=== PATIENT | female | born 1970 | race American Indian/Alaskan Native ===

== ENCOUNTER 2020-09-04 07:57 | Day surgery (SDC) | payer OTHER ==
[~2020-09-04] VITALS: Ht 172.7 cm; Wt 101.0 kg
[~2020-09-04 07:57] MED LIST: BIRTH CONTROL; DICLOFENAC SODI75 MG PO; HYDROCODON-ACE1 EA11 PO; NORCO 5-325 TA1 EACH PO; SUMATRIPTAN SU100 MG PO
[2020-09-04] MEDS ORDERED: PRILOSEC OTC20 MG PO (08:23)
--- NOTE | 2020-09-04 09:21 | NUR ---
09/04/20 0921 Madison Alan 0913 PT TO PACU SLEEPY BUT AROUSABLE DENIES PAIN OR NAUSEA.
--- NOTE | 2020-09-04 11:42 | OR ---
[facility] [address] [place], [place] [address] Signed DATE OF OPERATION: 09/04/2020 SURGEON: Kamlesh Acosta MD PREOPERATIVE DIAGNOSES: 1. Epigastric abdominal pain. 2. Substernal chest pain. 3. History of H. pylori at age 25, status post treatment. 4. Screening. POSTOPERATIVE DIAGNOSES: 1. Mild diffuse gastritis. 2. Ihaxvrt-dp-pthxxxuy sigmoid diverticulosis. 3. 5 mm polyp at 6 cm. PROCEDURES: 1. EGD with CLOtest and biopsies of the antrum. 2. Colonoscopy with hot biopsy. ESTIMATED BLOOD LOSS: None. INDICATIONS: Blanca is a 50-year-old female, asked to see me for upper and lower endoscopy. She gives no family history of colon cancer or polyps. She spoke about upper endoscopy at age 25. She remembers being treated for Helicobacter pylori. Overall, she thought she felt better at that time. More recently, her father is getting older and his dementia is getting worse. 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 Consequently, she has been having epigastric and substernal chest pain. As a result, she was asked to see me for both upper and lower endoscopies. To her knowledge, she really has no lower GI complaints. In the office, I gave her pamphlets on both upper and lower endoscopy. We reviewed the nature of the two tests along with the risks including, but not limited to gas bloating, crampy abdominal pain, bleeding, perforation requiring surgery, and missed diagnosis. We also discussed the need for the IV conscious sedation. She had expressed understanding and wished to proceed. PROCEDURE NOTE: Blanca was taken into our endoscopy suite and placed in the supine semi-recumbent position. The posterior oropharynx was anesthetized with lidocaine spray. A bite block was utilized for the case. She was given a total of 8 mg of Versed and 175 mcg of Electronically Signed By: KAMLESH ACOSTA MD 09/04/20 1142 PATIENT NAME: BLANCA RIVER OPERATIVE REPORT DATE OF : 70 REPORT #: [id number] PHYSICIAN: KAMLESH ACOSTA MD PCP: CORAL PATEL REPORT IS CONFIDENTIAL AND NOT TO BE RELEASED WITHOUT AUTHORIZATION [facility] [address] [place], [place] [address] Signed fentanyl to cover both cases. The adult gastroscope was introduced and advanced under direct visualization of camera into the third portion of the duodenum without difficulty. The duodenum and pyloric channel were unremarkable. Her stomach showed mild diffuse erythematous changes. We took a biopsy from the antrum for CLOtest as well as pathologic review. Upon retroflexion of scope, she may have just a very tiny hiatal hernia. The scope was withdrawn up through the area of the GE junction, which was compliant without stricture. She has minimal disruption to the Z-line. There was no Covington's mucosa. No distal esophagitis. The middle and upper esophagus were unremarkable. The vocal cords were unremarkable. After this, the gas had been suctioned out and the gastroscope removed. Blanca tolerated her upper endoscopy quite well. Blanca was then rotated into the left lateral decubitus position. She was maintained on IV sedation with the Versed and fentanyl. A digital rectal exam was performed and this was unremarkable. The adult colonoscope was introduced and advanced all around into the cecum under direct visualization of camera without difficulty. Overall, her prep was quite good except right at the base of the cecum. There was particulate stool matter I could not quite suction through the scope. We pushed the particulate stool matter around, we did not find anything unusual underneath the area. The scope was then slowly withdrawn. We could see her ileocecal valve quite nicely. We found sigmoid diverticula. They were minimal to moderate in number, and minimal to moderate in size. The rectum showed just a small polyp at about 6 cm. It was easily removed with the help of hot biopsy forceps. Upon retroflexion of scope, there was no additional pathology noted above the anal canal. After this, the gas was suctioned out and colonoscope removed. Blanca tolerated the lower endoscopy quite well. RECOMMENDATIONS: I will see Blanca back in my office in 7 to 14 days to review her results. Kamlesh Acosta MD ALB/MODL /[id number] cc: Kamlesh Acosta MD Electronically Signed By: KAMLESH ACOSTA MD 09/04/20 1142 PATIENT NAME: BLANCA R[place] OPERATIVE REPORT DATE OF : 70 REPORT #: [id number] PHYSICIAN: KMALESH ACOSTA MD PCP: CORAL PATEL REPORT IS CONFIDENTIAL AND NOT TO BE RELEASED WITHOUT AUTHORIZATION [address] [address] Signed Coral Patel Copies: KAMLESH ACOSTA MD, ELIZABETH ~ Electronically Signed By: KAMLESH ACOSTA MD 09/04/20 1142 PATIENT NAME: BLANCA R[place] OPERATIVE REPORT DATE OF : 70 REPORT #: [id number] PHYSICIAN: KAMLESH ACOSTA MD PCP: CORAL PATEL REPORT IS CONFIDENTIAL AND NOT TO BE RELEASED WITHOUT AUTHORIZATION
--- NOTE | 2020-09-05 14:45 | PATH ---
[facility] [address] [place], [place] [address] Signed SPECIMEN(S): A ANTRUM/PYLORUS BIOPSY SPECIMEN(S): B RECTAL POLYP AT 6 CM SPECIMEN SOURCE: A. ANTRUM/PYLORUS BIOPSY B. RECTAL POLYP AT 6 CM CLINICAL HISTORY: Esophagogastroduodenoscopy, colonoscopy. Epigastric pain, colon screening. Post: Gastritis, rectal polyp. MICROSCOPIC DESCRIPTION: Histologic sections of all submitted blocks are examined by light microscopy. These findings, together with the gross examination, support the pathologic diagnosis. FINAL PATHOLOGIC DIAGNOSIS: A. Stomach, antrum, biopsy: - Antral mucosa with chronic, active gastritis. - Positive for Helicobacter organisms on HE stain. - Negative for dysplasia or malignancy. B. Rectum, polyp at 6 cm, polypectomy: - Fragments of severely cauterized colorectal mucosa with no identifiable histopathologic abnormality. - See comment. COMMENT: Regarding specimen B: The degree of cautery artifact severely limits complete histologic interpretation. There is no evidence of invasive carcinoma. Dysplasia is favored to be absent. Correlation with colonoscopic findings is recommended. NAL:cml:C2NR GROSS DESCRIPTION: Two specimens are received in two containers, labeled "MV." A. The specimen, labeled "MV, 1," and designated on the requisition "antrum/pylorus biopsy," is received in formalin and consists of one brennan soft tissue fragment that measures 0.6 cm in greatest dimension. The specimen is entirely submitted in cassette (A1). B. The specimen, labeled "MV, 2," and designated on the requisition "rectum polypectomy at 6 cm," is received in formalin and consists of four brennan soft tissue fragments that measure 0.2 up to 0.5 cm PATIENT NAME: ELFE[place] RIVER PATHOLOGY DATE OF : 70 REPORT #: [id number] PHYSICIAN: IGNACIO PATHOLOGY PCP: CANDICE PATEL REPORT IS CONFIDENTIAL AND NOT TO BE RELEASED WITHOUT AUTHORIZATION [facility] [address] [place], [place] [address] Signed in greatest dimension. The specimen is entirely submitted in cassette (B1). AI (under the direct supervision of a pathologist) The Gross Description was prepared using a voice recognition system. The report was reviewed for accuracy; however, sound-alike word errors, addition and/or deletions may occur. If there is any question about this report, please contact Client Services. PERFORMING LABORATORY: The technical component was performed by [email or web address] [address] ([employer]: Martha Peralta MD; CLIA# [id number]). Professional interpretation [email or web address] [place] [address] [address] (CLIA# [id number]). Diagnostician: Paula Bautista MD Pathologist Electronically Signed 09/05/2020 Copies: ~ PATIENT NAME: ELFEGO RIVER PATHOLOGY DATE OF : 70 REPORT #: [id number] PHYSICIAN: IGNACIO FORD PCP: CANDICE PATEL REPORT IS CONFIDENTIAL AND NOT TO BE RELEASED WITHOUT AUTHORIZATION
== END 2020-09-04 09:50 | disposition home or self-care (01) ==
LOC: DS 07:57 → OPS 07:57 → DS 09:00 → OPS 09:00
PROVIDERS: ATTEND Colon & Rectal Surgery
PROC: 0DB68ZX Excision of Stomach, Via Natural or Artificial Opening Endoscopic, Diagnostic (ICD-10-PCS; principal; 2020-09-04 09:00)
PROC: 0DBP8ZX Excision of Rectum, Via Natural or Artificial Opening Endoscopic, Diagnostic (ICD-10-PCS; 2020-09-04 09:00)
DX: Z12.11 Encounter for screening for malignant neoplasm of colon (principal); K29.50 Unspecified chronic gastritis without bleeding; B96.81 Helicobacter pylori [H. pylori] as the cause of diseases classified elsewhere; K57.30 Diverticulosis of large intestine without perforation or abscess without bleeding; K62.1 Rectal polyp; Z91.013 Allergy to seafood; Z91.048 Other nonmedicinal substance allergy status
CPT/HCPCS: 84703; 86677; 99153; G0500; J2250; J3010; J7121

== ENCOUNTER 2021-04-29 16:39 | Emergency (ER) | payer OTHER ==
[~2021-04-29] VITALS: Ht 172.7 cm; Wt 100.7 kg
[~2021-04-29 16:39] MED LIST changes: +PRILOSEC OTC20 MG PO
[2021-04-29] MEDS ORDERED: HYDROCODON-ACE1 EA10 PO (17:53)
== END 2021-04-29 18:17 | disposition home or self-care (01) ==
LOC: ED 16:39
DX: M79.602 Pain in left arm (principal); G43.909 Migraine, unspecified, not intractable, without status migrainosus; Z91.013 Allergy to seafood; Z79.899 Other long term (current) drug therapy
CPT/HCPCS: 73030; 73060; 99283-25

== ENCOUNTER 2024-02-27 03:28 | Emergency (ER) | payer OTHER ==
[~2024-02-27] VITALS: Ht 172.7 cm; Wt 109.0 kg
[~2024-02-27 03:28] MED LIST changes: +HYDROCODON-ACE1 EA10 PO
[2024-02-27] MEDS ORDERED: diphenhydrAMINE HCL 50 MG/ML VIAL IV ONE (03:45)
[2024-02-27] MEDS ORDERED: METOCLOPRAMIDE HCL 10 MG/2 ML SDV IV ONE (03:45)
[2024-02-27] MEDS ORDERED: SUMAtriptan succinate 6 MG/0.5 ML VIAL SUB-Q ONE (03:45)
[2024-02-27] MEDS ORDERED: LACTATED RINGER'S 1,000 ML IV ONE (04:45)
[2024-02-27] MEDS ORDERED: KETOROLAC TROMETHAMINE 30 MG/ML VIAL IV ONE (04:45)
[2024-02-27] MEDS ORDERED: IMITREX50 MG PO (05:29)
[2024-02-27] MEDS ORDERED: ONDANSETRON ODT8 MG PO (05:29)
[2024-02-27 05:48] VITALS: BP 143/78
== END 2024-02-27 05:50 | disposition home or self-care (01) ==
LOC: ED 03:28
DX: G43.909 Migraine, unspecified, not intractable, without status migrainosus (principal); Z91.013 Allergy to seafood
CPT/HCPCS: 70450; 96374; 96375; 99284-25; J1200; J1885; J2765; J3030; J7121